=== PATIENT | female | born 1955 | race Hispanic/Latino ===

== ENCOUNTER 2018-01-02 08:41 | Outpatient (CLI) | payer OTHER ==
--- NOTE | 2018-01-02 12:08 | ULT ---
LEFT BREAST ULTRASOUND: History: Palpable mass at the 10 o'clock position of the left breast. Comparison: Mammogram 01-02-18, 09-18-15, 09-15-14 Technique: Multiplanar grayscale and color doppler images were obtained in a targeted ultrasound of t he left breast in the area of palpable abnormality. FINDINGS: At the 10 o'clock position of the left breast, no suspicious masses are seen. In the subcutaneous fat , there appears to be an area of slightly more echogenic fat which may be encapsulated. This likely c orresponds to palpable abnormality and likely represents a superficial lipoma. This measures 3.7 x 0. 9 x 2.4 cm in size. IMPRESSION: BIRADS category 2 - benign findings. Annual screening mammography is recommended. POS: [facility]
== END 2018-01-02 08:42 | disposition home or self-care (01) ==
LOC: BICMAMMO 08:41 → EDSTATUS 09:00
PROVIDERS: ATTEND Surgery
DX: N63.22 Unspecified lump in the left breast, upper inner quadrant (principal); R92.1 Mammographic calcification found on diagnostic imaging of breast
CPT/HCPCS: 77066; G0279

== ENCOUNTER 2018-12-21 08:52 | Outpatient (CLI) | payer MEDICARE ==
[2018-12-21] MEDS ORDERED: Iopamidol 370 76% 100 ML VIAL ONE (09:00)
--- NOTE | 2018-12-21 10:39 | CT ---
CT Abdomen Pelvis W Con HISTORY: Left-sided abdomen pain. History of cholecystectomy bladder suspension and hysterectomy. COMPARISON: None. FINDINGS: The lung bases are clear of any infiltrative process. There are diffuse fatty changes of the liver which is within normal limits of size. The spleen is nor mal in appearance. Pancreas shows no mass or ductal dilatation. The gallbladder has been removed. Right and left adrenal glands and right and left kidneys are normal in size. There is no significant periaortic or mesenteric lymphadenopathy. There are some small nonspecific periportal nodes. CT of pelvis performed with contrast enhancement: The appendix is normal. There is no significant chloe nopathy or mass. No inflammatory change. The uterus has been removed. IMPRESSION: 1. No acute findings of abdomen or pelvis. 2. Diffuse fatty change of the liver. 3. Postcholecystectomy and hysterectomy changes.
== END 2018-12-21 08:53 | disposition home or self-care (01) ==
LOC: SCSCT 08:52
PROVIDERS: ATTEND Physician Assistant Medical
DX: R10.12 Left upper quadrant pain (principal); K76.0 Fatty (change of) liver, not elsewhere classified; R19.4 Change in bowel habit; R31.9 Hematuria, unspecified; Z90.49 Acquired absence of other specified parts of digestive tract; Z97.10 Presence of artificial limb (complete) (partial), unspecified
CPT/HCPCS: 74177; Q9967